=== PATIENT | male | born 1940 ===

== ENCOUNTER 2023-08-30 05:10 | Day surgery (SDC) | payer OTHER ==
[~2023-08-30 05:10] MED LIST: ALDACTONE25 MG PO; AMIODARONE; AMIODARONE 200 MG; APETIGEN; ATORVASTATIN 10MG; CARVEDILOL6.25 MG; ENALAPRIL MALE2.5 MG; GLUMETZA500 MG PO; GLYCOPYRROLATE 2 MG; LANOXIN125 MCG; NAMENDA10 MG PO; NEUROTIN 400MG; TAMS0.4C PO; WARFARIN SODIU2.5 MG PO; [UNRECOGNIZED DRUG - OTHER]
[2023-08-30] MEDS ORDERED: CEFAZOLIN SODIUM 1,000 MG VIAL ONE (06:26)
[2023-08-30] MEDS ORDERED: LIDOCAINE HCL 1%/Epi 20ML VIAL IJ ONE (07:24)
[2023-08-30] MEDS ORDERED: BUPIVACAINE HCL/PF 0.5% 30ML ML ONE (07:24)
[2023-08-30] MEDS ORDERED: CEFAZOLIN SODIUM 1,000 MG VIAL IV ONE (08:15)
== END 2023-08-30 11:15 | disposition home or self-care (01) ==
LOC: CIR.AMB 05:10
PROVIDERS: ATTEND Surgery
DX: K80.10 Calculus of gallbladder with chronic cholecystitis without obstruction (principal); Z88.6 Allergy status to analgesic agent